=== PATIENT | male | born 1955 | race Caucasian/White ===

== ENCOUNTER 2024-09-18 18:22 | Observation (INO) | payer MEDICARE ==
[~2024-09-18] VITALS: Ht 185.4 cm; Wt 109.8 kg
[2024-09-18 18:32] VITALS: BP 147/75; O2SAT 97
[2024-09-18] MEDS ORDERED: fentaNYL 50 MCG/ML 2 ML VIAL IV ONE (18:45)
[2024-09-18 18:54] LABS: BASO # 0.1 K/mm3 (0.0-0.2); BASO % 0.4 % (0.0-2.0); EOS % 0.2 % (0.0-4.0); GRAN % 76.1 % (42.2-75.2); HEMATOCRIT 42.5 % (42.0-52.0); HEMOGLOBIN 14.2 g/dl (13.5-18.0); INR 0.9 (0.8-3.0); LYMPH # 2.1 K/mm3 (1.2-3.4); LYMPH % 17.6 % (20.0-51.0); MEAN CELL VOLUME 92 fl (80.0-100.0); MEAN CORPUSCULAR HEMOGLOBIN 31 pg (27-31); MEAN CORPUSCULAR HGB CONC 33 g/dl (33.0-37.0); MONO # 0.6 K/mm3 (0.1-0.6); MONO % 4.9 % (1.7-9.3); PLATELET COUNT 245 K/mm3 (130-400); PROTHROMBIN TIME 10.2 SECONDS (9.7-12.8); RED BLOOD COUNT 4.61 M/mm3 (4.20-5.60); REDCELL DISTRIBUTION WIDTH-CV 12.9 % (11.5-14.5)
[2024-09-18 19:08] LABS: CALCIUM 9.4 mg/dL (8.4-10.2); CREATININE, serum 1.24 mg/dL (0.72-1.25); POTASSIUM 5.2 mEq/L (3.5-4.5); TOTAL PROTEIN 7.2 g/dl (6.2-8.1)
[2024-09-18 19:18] LABS: BILIRUBIN,TOTAL 0.3 mg/dL (0.2-1.2)
[2024-09-18 19:28] LABS: TROPONIN-I 0.034 ng/mL (0.00-0.033)
[2024-09-18] MEDS ORDERED: Aspirin 325 MG TAB PO ONE (20:15)
[2024-09-18] MEDS ORDERED: Ondansetron 4 MG/2 ML VIAL IV PRN (20:45)
[2024-09-18] MEDS ORDERED: Morphine 4 MG/ML VIAL IV PRN (20:45)
[2024-09-18] MEDS ORDERED: Acetaminophen 500 MG TAB PO PRN (20:45)
[2024-09-18] MEDS ORDERED: Famotidine 20 MG TAB PO SCH (21:00)
[2024-09-18 22:00] VITALS: BP 104/69; PULSE 51; TEMP 98.4
[2024-09-18] MEDS ORDERED: NEURONTIN800 MG/TAB PO (22:18)
[2024-09-18] MEDS ORDERED: PREDNISONE10 MG PO (22:20)
[2024-09-18] MEDS ORDERED: 00186-0370-20 IH (22:24)
[2024-09-18] MEDS ORDERED: NORCO 325 MG-101 TAB (22:26)
[2024-09-18] MEDS ORDERED: CELEBREX 1100 MG/CAP PO (22:27)
[2024-09-18] MEDS ORDERED: CELEBREX 200MG200 MG PO (22:28)
[2024-09-18] MEDS ORDERED: MASON NATURAL600 MG PO (22:29)
[2024-09-18] MEDS ORDERED: ZANAFLEX CAPSULE4 MG PO (22:30)
[2024-09-18] MEDS ORDERED: COZAAR 50MG50 MG/TAB PO (22:30)
[2024-09-18] MEDS ORDERED: VOLTAREN 75 DR75 MG (22:32)
[2024-09-18] MEDS ORDERED: PROTONIX 40MG T40 MG PO (22:32)
[2024-09-18] MEDS ORDERED: VENTOLIN0.09 MG (22:34)
[2024-09-18] MEDS ORDERED: VIAGRA100 M1 (22:35)
[2024-09-18] MEDS ORDERED: FLONASEALLERGY NS (22:37)
[2024-09-18] MEDS ORDERED: NITROSTAT0.4 MG/TAB SL (22:39)
--- NOTE | 2024-09-18 22:56 | NUR ---
Patient arrived to the floor at 2151, A/Ox4, reports minimal pain at this time of assessment, denies the need for pain meds, admission assessment and intake done, medrec reviewed, he reported he started taking prednisone as prescribed by his provider last friday, see medrec for details, IV infusing well on right forearm, hospital policies orientated, denies further needs, call light and personal items within reach, will continue to monitor.
[2024-09-19] VITALS (9 sets, daily range): BP systolic 158–196; BP diastolic 60–94; PULSE 50–82; TEMP 97.6–98.6
--- NOTE | 2024-09-19 00:21 | NUR ---
Called Sriram the PA and made him aware about patient's critical troponin of 0.036, no new orders received at this time.
--- NOTE | 2024-09-19 02:28 | NUR ---
Called Sriram, the PA and made him aware that patient's HR went down to 41bpm, asymptomatic, received an order for another repeat troponin at 0300, no further orders.
[2024-09-19 04:02] LABS: BASO # 0.1 K/mm3 (0.0-0.2); BASO % 0.5 % (0.0-2.0); EOS # 0.1 K/mm3 (0.0-0.7); EOS % 0.8 % (0.0-4.0); GRAN % 60.3 % (42.2-75.2); HEMATOCRIT 38.3 % (42.0-52.0); LYMPH # 3.8 K/mm3 (1.2-3.4); LYMPH % 28.7 % (20.0-51.0); MEAN CELL VOLUME 91 fl (80.0-100.0); MEAN CORPUSCULAR HEMOGLOBIN 31 pg (27-31); MEAN CORPUSCULAR HGB CONC 34 g/dl (33.0-37.0); MEAN PLATELET VOLUME 10.1 fl (7.4-10.4); MONO # 1.2 K/mm3 (0.1-0.6); MONO % 9.4 % (1.7-9.3); PLATELET COUNT 199 K/mm3 (130-400); RED BLOOD COUNT 4.21 M/mm3 (4.20-5.60); REDCELL DISTRIBUTION WIDTH-CV 13.1 % (11.5-14.5)
[2024-09-19 04:41] LABS: CALCIUM 8.6 mg/dL (8.4-10.2); POTASSIUM 4.6 mEq/L (3.5-4.5)
[2024-09-19] MEDS ORDERED: Albuterol 0.042% Neb Soln 1.25 MG/3 ML UD IH PRN (04:45)
[2024-09-19 04:52] LABS: THYROID STIMULATING HORMONE 1.14 uIU/mL (0.350-4.940)
--- NOTE | 2024-09-19 05:24 | NUR ---
Received a call from [facility], ICU that patient was off leads, applied new chest leads.
--- NOTE | 2024-09-19 05:31 | NUR ---
Patient's blood pressure is 196/94, called Sriram the PA and made him aware, received an order for hydralazine 10mg IV every 6hrs PRN for systolic more than 160mmhg.
[2024-09-19] MEDS ORDERED: hydrALAZINE 20 MG/ML 1 ML VIAL IV PRN (05:45)
[2024-09-19 05:56] LABS: CHOLESTEROL RISK RATIO 3.8
--- NOTE | 2024-09-19 06:34 | NUR ---
Rechecked BP and it's 158/76, will continue to monitor, will report off to dayshift nurse.
--- NOTE | 2024-09-19 07:45 | NUR ---
Patient sitting up in bed, A&Ox4. Complaints of SOB and pain in BLE. RT aware and assessed the patient. VSS. IV CDI. Scheduled meds given for BLE pain. Call light within reach
[2024-09-19] MEDS ORDERED: predniSONE 10 MG TAB PO SCH ×2 (09:00)
[2024-09-19] MEDS ORDERED: Losartan 50 MG TAB PO SCH (09:00)
[2024-09-19] MEDS ORDERED: tiZANidine 4 MG TAB PO SCH (09:00)
[2024-09-19] MEDS ORDERED: Gabapentin 400 MG CAP PO SCH (09:00)
--- NOTE | 2024-09-19 10:49 | NUR ---
clerical office worker met with pt to discuss discharge planning. he reports to live with someone in [place]. He reports to not have a PCP and declined a list from [facility] and any additional help. He states to be familiar with the area and locating a PCP. He obtains medications from [facility] with no difficulties. Pt verified to have Medicare [employer] insurance. Pt is independent with [facility] and uses no DME. He does not have a DPOA-HC and reports to be legally , but . He informs [facility] that his partner, Em [phone] is his contact. He was provided information on [id number] status and reports to have a copy at home. informed TODD Moody that pt does not have a PCP and declined assistance. Discharge Plan: home
[2024-09-19] MEDS ORDERED: Fluticasone Nasal 50 MCG/Spray 16 GM BOTTLE NS SCH (11:28)
[2024-09-19] MEDS ORDERED: NITROSTAT0.4 MG/TAB SL (11:37)
[2024-09-19] MEDS ORDERED: ASPIRIN E.C. 8181 MG PO (11:38)
[2024-09-19] MEDS ORDERED: TYLENOL 500MG500 MG PO (11:38)
--- NOTE | 2024-09-19 12:15 | NUR ---
Discharge paperwork reviewed with the patient. Patient verbalized an understanding. IV removed, tip intact. Gauze and coban applied. PAtient waitiing on ride home. Call light within reach
--- NOTE | 2024-09-19 12:31 | NUR ---
Patient taken by wheelchair to awaiting vehicle.
[2024-09-19] MEDS ORDERED: Formoterol 20 MCG,Budesonide 0.5 MG IH SCH (19:00)
== END 2024-09-19 12:32 | disposition home or self-care (01) ==
LOC: COL.ER 18:22 → SURG 20:40
PROVIDERS: Family Medicine; Physician Assistant; ADMIT Internal Medicine
DX: R07.2 Precordial pain (principal); I10 Essential (primary) hypertension; E78.5 Hyperlipidemia, unspecified; J44.9 Chronic obstructive pulmonary disease, unspecified; G89.29 Other chronic pain; E66.01 Morbid (severe) obesity due to excess calories; F17.210 Nicotine dependence, cigarettes, uncomplicated; Z79.899 Other long term (current) drug therapy; Z95.1 Presence of aortocoronary bypass graft
CPT/HCPCS: G0378; J0360; J3010; J7512